=== PATIENT | male | born 1945 | race Hispanic/Latino ===

== ENCOUNTER 2017-08-15 07:45 | Observation (INO) | payer MEDICARE ==
[2017-08-13 12:49] LABS: BASOPHILS % (AUTO) 0.5 % (0.0-5.0); EOSINOPHILS % (AUTO) 0.9 % (0.0-8.0); HEMATOCRIT 43.7 % (42-54); MEAN CORPUSCULAR HEMOGLOBIN 30.6 pg (27.0-33.0); MEAN CORPUSCULAR HGB CONC 34.2 g/dL (32.0-36.0); MEAN CORPUSCULAR VOLUME 89.7 fL (79-99); MONOCYTES % (AUTO) 7.3 % (3.0-13.0); NEUTROPHILS % (AUTO) 78.3 % (40.0-77.0); PLATELET COUNT (AUTO) 173 K/uL (130-400); RED BLOOD CELL COUNT(AUTO) 4.87 MIL/uL (4.50-6.20); RED CELL DISTRIBUTION WIDTH 14.3 % (11.0-15.5); WHITE BLOOD COUNT (AUTO) 8.1 K/uL (4.8-10.8)
[2017-08-13 12:55] LABS: CREATININE 1.5 mg/dL (0.5-1.5); POTASSIUM 4.5 mmol/L (3.5-5.1)
[2017-08-13 12:59] VITALS: BP 176/98
[2017-08-13 13:01] LABS: INR 0.96 (0.85-1.15); PARTIAL THROMBOPLASTIN TIME 27.3 SEC (26.3-35.5); PROTHROMBIN TIME 10.1 SEC (9.6-11.6)
[2017-08-13 14:29] LABS: APPEARANCE,URINE Clear (CLEAR); BILIRUBIN,URINE Negative (NEGATIVE); COLOR,URINE Yellow (YELLOW); GLUCOSE, URINE (UA) Negative (NEGATIVE); KETONES,URINE Negative (NEGATIVE); LEUKOCYTE ESTERASE ,URINE Trace (NEGATIVE); NITRATE,URINE Negative (NEGATIVE); OCCULT BLOOD,URINE Small (NEGATIVE); PROTEIN,URINE Negative (NEGATIVE); UROBILINOGEN,URINE 0.2 mg/dL (0.2-1.0)
[2017-08-13 15:00] LABS: BACTERIA,URINE Rare /HPF (None Seen); RBC,URINE 0-1 /HPF (0-1); SQUAMOUS EPITHELIAL CELL,UR Rare /HPF (0-2); WBC,URINE 0-1 /HPF (0-1)
[2017-08-15] VITALS (14 sets, daily range): BP systolic 147–181; BP diastolic 85–106
[~2017-08-15] VITALS: Ht 175.3 cm; Wt 81.6 kg
[~2017-08-15 07:45] MED LIST: ASPI-1181 PO; CHOL200013 PO; ENAL5TAB PO; NITR0.4T50 SL; PRAV40TA3 PO; RANO500T3 PO; TAMS0.4C32 PO
[2017-08-15] MEDS ORDERED: SODIUM CHLORIDE 0.9% 1000ML 1,000 ML IV ONE (09:03)
[2017-08-15] MEDS ORDERED: BIVALIRUDIN 250 MG/VIAL IV ONE (09:59)
[2017-08-15] MEDS ORDERED: NITROGLYCERIN 5 MG/ML 10 ML VIAL IV ONE (10:00)
[2017-08-15] MEDS ORDERED: ISOVUE-370 50ML VIAL IV ONE (10:00)
[2017-08-15] MEDS ORDERED: IOPAMIDOL-370 100 ML VIAL IV ONE (10:00)
[2017-08-15] MEDS ORDERED: LIDOCAINE HCL 2% 20ML ONE (10:00)
[2017-08-15] MEDS ORDERED: MIDAZOLAM HCL 1 MG/ML 2ML VIAL ONE (10:21)
[2017-08-15] MEDS ORDERED: FENTANYL CITRATE PF 50 MCG/1 ML 2ML VIAL ONE (10:21)
[2017-08-15] MEDS ORDERED: ATROPINE SULFATE 0.1 MG/ML 10 ML SYG IVP ONE (10:49)
[2017-08-15] MEDS ORDERED: DOPAMINE HCL 400 MG/D5%-WATER 0 ML IV ONE (10:52)
[2017-08-15] MEDS ORDERED: ASPIRIN 81MG TAB.CHEW ONE (10:55)
[2017-08-15] MEDS ORDERED: TICAGRELOR 90 MG TABLET ONE (10:55)
[2017-08-15] MEDS ORDERED: SODIUM CHLORIDE 0.9% 1000ML 1,000 ML IV SCH (11:13)
[2017-08-15] MEDS ORDERED: GLUCAGON 1MG KIT 1 MG ML IM PRN (11:15)
[2017-08-15] MEDS ORDERED: HYDRALAZINE HCL 20 MG/ML VIAL IV PRN (11:15)
[2017-08-15] MEDS ORDERED: NITROGLYCERIN 0.4 MG SL TAB SL PRN (11:15)
[2017-08-15] MEDS ORDERED: ACETAMINOPHEN-CODEINE 300/30MG TAB PO PRN (11:15)
[2017-08-15] MEDS ORDERED: DEXTROSE 50%-WATER 50 ML DISP.SYRIN IV PRN (11:15)
[2017-08-15] MEDS ORDERED: TAMSULOSIN HCL 0.4 MG CAP.ER.24H ONE (18:44)
[2017-08-15] MEDS ORDERED: ATORVASTATIN CALCIUM 20 MG TABLET PO SCH (21:00)
[2017-08-15] MEDS ORDERED: TAMSULOSIN HCL 0.4 MG CAP.ER.24H PO SCH (21:00)
[2017-08-15] MEDS ORDERED: ENALAPRIL MALEATE 5 MG TAB PO SCH (21:00)
[2017-08-15] MEDS: TICAGRELOR 90 MG TABLET PO SCH (23:09)
[2017-08-16 03:36] VITALS: BP 153/86
[2017-08-16 04:07] LABS: HEMATOCRIT 42.2 % (42-54); MEAN CORPUSCULAR HEMOGLOBIN 30.2 pg (27.0-33.0); MEAN CORPUSCULAR HGB CONC 34.2 g/dL (32.0-36.0); MEAN CORPUSCULAR VOLUME 88.4 fL (79-99); PLATELET COUNT (AUTO) 162 K/uL (130-400); RED BLOOD CELL COUNT(AUTO) 4.78 MIL/uL (4.50-6.20); RED CELL DISTRIBUTION WIDTH 14.3 % (11.0-15.5); WHITE BLOOD COUNT (AUTO) 12.5 K/uL (4.8-10.8)
[2017-08-16 04:24] LABS: CREATININE 1.5 mg/dL (0.5-1.5); POTASSIUM 3.7 mmol/L (3.5-5.1)
[2017-08-16 07:00] VITALS: BP 152/89
[2017-08-16] MEDS: TICAGRELOR 90 MG TABLET PO SCH (08:01)
[2017-08-16] MEDS ORDERED: ***HM***(Cholecalciferol (Vitamin D3) (Vitamin D3) 2,000 UNIT) PO SCH (09:00)
[2017-08-16] MEDS ORDERED: ASPIRIN 81 MG EC TAB PO SCH (09:00)
[2017-08-16] MEDS ORDERED: ENAL10TA PO (09:28)
[2017-08-16] MEDS ORDERED: ATOR20TA65 PO (09:28)
[2017-08-16] MEDS ORDERED: TICA90TA PO (09:35)
[2017-08-16] MEDS ORDERED: ENALAPRIL MALEATE 5 MG TAB PO SCH (21:00)
== END 2017-08-16 11:15 | disposition home or self-care (01) ==
LOC: DAH 07:45 → DAHIP 07:46 → DAH 07:46 → 2DH 11:53
PROVIDERS: ADMIT Internal Medicine Cardiovascular Disease; ATTEND Internal Medicine Cardiovascular Disease
DX: I25.118 Atherosclerotic heart disease of native coronary artery with other forms of angina pectoris (principal); I11.9 Hypertensive heart disease without heart failure; I50.32 Chronic diastolic (congestive) heart failure
CPT/HCPCS: 36415 ×3; 71045; 80048 ×2; 80061; 81001; 83880; 85025; 85027; 85610; 85730; 93005; 93454; 96374; A4344; A4606; C1760; C1769; C1874; C1887; C1894 ×2; C9600; G0378 ×27; J0360; J0461; J0583; J1644; J2250; J3010; J3490 ×2; J7030; Q9967; 93458; 99152; 99153; J1265